=== PATIENT | male | born 1965 ===

== ENCOUNTER 2021-10-25 07:38 | Day surgery (SDC) | payer OTHER ==
[~2021-10-25] VITALS: Ht 188 cm; Wt 104.3 kg
[2021-10-25] MEDS ORDERED: LIDOCAINE 2% 100 MG/5 ML UJET TP ONE (09:22)
[2021-10-25] MEDS ORDERED: MIDAZOLAM 5 MG/5 ML VIAL ONE (09:22)
[2021-10-25] MEDS ORDERED: fentaNYL citrate 0.05 MG/ML VIAL ONE (09:22)
[2021-10-25] MEDS ORDERED: MIDAZOLAM 2 MG/2 ML VIAL IVP ONE (14:25)
[2021-10-25] MEDS ORDERED: fentaNYL citrate 0.05 MG/ML VIAL IVP ONE (14:25)
== END 2021-10-25 11:05 | disposition home or self-care (01) ==
LOC: MDS 07:38 → MMU 07:40 → MDS 11:05
PROVIDERS: ATTEND Surgery
DX: Z12.11 Encounter for screening for malignant neoplasm of colon (principal); K60.2 Anal fissure, unspecified; K63.5 Polyp of colon; Z79.899 Other long term (current) drug therapy
CPT/HCPCS: 45380; 87426; J2250; J3010

== ENCOUNTER 2024-06-30 13:00 | Outpatient (CLI) | payer OTHER ==
[~2024-06-30 13:00] MED LIST: ACET-9525 PO; METR-435 PO; NAPR-337 PO; ONDA-188 PO; ROC2I IJ; TERA1CAP7 PO
== END 2024-06-30 20:49 | disposition home or self-care (01) ==
LOC: MUS 13:00
PROVIDERS: ATTEND Internal Medicine
DX: C67.0 Malignant neoplasm of trigone of bladder (principal)
CPT/HCPCS: 76770